=== PATIENT | male | born 1965 | race Caucasian/White ===

== ENCOUNTER 2017-07-22 18:07 | Emergency (ER) | payer MEDICARE, OTHER ==
[~2017-07-22 18:07] MED LIST: C2; C5 PO; MULTIPLE VIT PO; OPANA ER15 MG PO; OPANA10 MG PO; OXYCOD PO; PCET PO; PEPCID40 MG OR; PERCOCET1 TA4 PO; PROTONIX PO; ROXICODONE15 MG PO; ROXICODONE30 MG; XANAX1 MG PO
== END 2017-07-22 21:56 | disposition home or self-care (01) ==
LOC: ER 18:07
DX: R51 Headache (principal); K21.9 Gastro-esophageal reflux disease without esophagitis; F41.9 Anxiety disorder, unspecified; F17.200 Nicotine dependence, unspecified, uncomplicated; Z88.0 Allergy status to penicillin; Z87.442 Personal history of urinary calculi; Z88.1 Allergy status to other antibiotic agents; Z79.01 Long term (current) use of anticoagulants
CPT/HCPCS: 70450; 96374; 99284; J1200; J1885; J2765